=== PATIENT | male | born 1985 | race Caucasian/White ===

== ENCOUNTER 2019-08-13 11:49 | Emergency (ER) | payer MEDICARE, MEDICAID ==
--- NOTE | 2019-08-13 12:09 | ED ---
Abdominal Pain/Male - HPI Summary HPI Summary: 34 year old M presenting to [facility] from his primary care provider's office accompanied by mother, , and son complains of RLQ abdominal pain and right flank pain that started 00:00 today 08/13/19. Reports nausea/vomiting x6 and diarrhea x2 last night. Patient states he was unable to sleep last night. States he tried to use heat for the pain with no relief. The patient rates the pain 10/10 in severity. Symptoms aggravated by nothing. Symptoms alleviated by nothing. Patient denies fever, chills, diaphoresis, erythema of eyes, sore throat, chest pain, shortness of breath, cough, dysuria, hematuria, myalgia, edema, rash, or dizziness. No testicular pain or testicular nodules. reports hx testicular cellulitis a few months ago. Patient is adopted. No smoking or drinking. - History of Current Complaint Chief Complaint: EDFlankPain Stated Complaint: ABD/FLANK PAIN PER PT Time Seen by Provider: 08/13/19 12:02 Hx Obtained From: Patient Onset/Duration: Lasting Hours - 12, Still Present Timing: Constant Severity Currently: Severe Pain Intensity: 10 Pain Scale Used: 0-10 Numeric Location: Discrete At: RLQ, Flank - right Radiates: No Aggravating Factor(s): Nothing Alleviating Factor(s): Nothing Associated Signs And Symptoms: Positive: Negative - fever, chills, diaphoresis, erythema of eyes, sore throat, chest pain, shortness of breath, cough, dysuria, hematuria, myalgia, edema, rash, or dizziness, testicular pain or testicular nodules, Nausea, Vomiting, Diarrhea - Allergies/Home Medications Allergies/Adverse Reactions: Allergies Allergy/AdvReac Type Severity Reaction Status Date / Time cephalexin [From Keflex] Allergy Nausea And Verified 08/13/19 11:51 Vomiting shellfish derived Allergy Hives/Diff. Verified 08/13/19 11:51 Breathing/I tching Home Medications: Home Medications Albuterol inh POWDER (NF) [Proair Respiclick] 1 puff INH DAILY 08/13/19 [ History Confirmed 08/13/19] Cetirizine* [ZyrTEC 10 MG TAB*] 10 mg PO DAILY 08/13/19 [History Confirmed 08/13] Propranolol TAB* [Inderal TAB*] 60 mg PO DAILY 08/13/19 [History Confirmed 08/13] PMH/Surg Hx/FS Hx/Imm Hx Endocrine/Hematology History: Denies: Hx Diabetes, Hx Thyroid Disease Cardiovascular History: Denies: Hx Hypertension Respiratory History: Reports: Hx Asthma Denies: Hx Chronic Obstructive Pulmonary Disease (COPD) GI History: Denies: Hx Ulcer Psychiatric History: Reports: Hx Anxiety - Surgical History Surgery Procedure, Year, and Place: Bilateral laser eye surgery Infectious Disease History: No Infectious Disease History: Denies: Hx Clostridium Difficile, Hx Hepatitis, Hx Human Immunodeficiency Virus (HIV), Hx of Known/Suspected MRSA, Hx Shingles, Hx Tuberculosis, Hx Known/ Suspected VRE, Hx Known/Suspected VRSA, History Other Infectious Disease, Traveled Outside the [place] in Last 30 Days - Family History Known Family History: Positive: Unknown - (Adopted) - Social History Alcohol Use: None Hx Substance Use: No Substance Use Type: Reports: None Hx Tobacco Use: No Smoking Status (MU): Never Smoked Tobacco Have You Smoked in the Last Year: No Review of Systems Negative: Fever, Chills, Skin Diaphoresis Negative: Erythema Negative: Sore Throat Negative: Chest Pain Negative: Shortness Of Breath, Cough Positive: Abdominal Pain - RLQ, Vomiting - x6, Diarrhea - x2, Nausea Genitourinary: Negative - testicular pain, testicular nodules Positive: flank pain - right. Negative: dysuria, hematuria Negative: Myalgia, Edema Negative: Rash Neurological: Negative - Dizziness All Other Systems Reviewed And Are Negative: Yes Physical Exam - Summary Physical Exam Summary: Constitutional: Well-developed, Well-nourished, Alert. (-) Distressed Skin: Warm, Dry HENT: Normocephalic; Atraumatic Eyes: Conjunctiva normal Neck: Musculoskeletal ROM normal neck. (-) JVD, (-) Stridor, (-) Tracheal deviation Cardio: Rhythm regular, rate normal, Heart sounds normal; Intact distal pulses; The pedal pulses are 2+ and symmetric. Radial pulses are 2+ and symmetric. (-) Murmur Pulmonary/Chest wall: Effort normal. (-) Respiratory distress, (-) Wheezes, (-) Rales Abd: Soft, RLQ tenderness upon palpation, right CVA tenderness, (-) Distension, (-) Guarding, (-) Rebound Musculoskeletal: (-) Edema Lymph: (-) Cervical adenopathy Neuro: Alert, Oriented x3 Psych: Mood and affect Normal Triage Information Reviewed: Yes Vital Signs On Initial Exam: Initial Vitals Temp Pulse Resp BP Pulse Ox 98.8 F 103 20 151/101 100 08/13/19 11:51 08/13/19 11:51 08/13/19 11:51 08/13/19 11:51 08/13/19 11:51 Vital Signs Reviewed: Yes Procedures - Sedation Patient Received Moderate/Deep Sedation with Procedure: No Diagnostics - Vital Signs Vital Signs Temp Pulse Resp BP Pulse Ox 08/13/19 11:51 98.8 F 103 20 151/101 100 - Laboratory Result Diagrams: 08/13/19 12:20 08/13/19 12:20 Lab Statement: Any lab studies that have been ordered have been reviewed, and results considered in the medical decision making process. - CT Abd/Pel CT Interpretation Completed By: Radiologist Summary of CT Findings: 1. 0.2 CM CALCULUS OF THE RIGHT UVJ WITH MILD RIGHT HYDROURETER. 2. BILATERAL SPONDYLOLYSIS OF L5. ED physician has reviewed this report. Re-Evaluation - Re-Evaluation First Eval Re-Evaluation Time: 15:12 Change: Improved Comment: patient feels better and updated on plan of care. he agrees to d/c and understands sx that warrant return to ED Abdominal Pain Male Course/Dx - Course Course Of Treatment: 34 year old M from his primary care provider's office complains of RLQ abdominal pain, right flank pain, nausea/vomiting x6, and diarrhea x2 that started 00:00 today 08/13/19. Upon exam, the patient has RLQ tenderness upon palpation and right CVA tenderness. Bloodwork results with no significant abnormalities except for Hct 39, MPV 7.3, absolute neuts 8.7, absolute lymphs 0.8, sodium 134, carbon dioxide 21, creatinine 1.54, lactic acid 2.1, CRP 54.93. Urinalysis results with no significant abnormalities except for protein 1+, trace ketones, RBC 1+. CT Abd/Pel shows, per radiologist : 1. 0.2 CM CALCULUS OF THE RIGHT UVJ WITH MILD RIGHT HYDROURETER. 2. BILATERAL SPONDYLOLYSIS OF L5. In the ED course, the patient was given ketorolac 30 mg IV, morphine 4 mg IV, Zofran 8 mg IV, and normal saline fluids 1 L IV. After medications, patient feels better. Patient will be discharged home with prescription for naproxen 500 mg PO, Flomax 0.4 mg PO, and tramadol 50 mg PO and follow up from urology in 2-3 days. Patient was instructed to return to Emergency Department for new or worsening symptoms especially fever. Patient understands and is agreeable to this plan. - Diagnoses Provider Diagnoses: Ureteral stone Discharge ED - Sign-Out/Discharge Documenting (check all that apply): Patient Departure - Discharge - Discharge Plan Condition: Stable Disposition: HOME Prescriptions: Naproxen TAB* [Naprosyn 250 mg TAB*] 500 mg PO Q8H PRN #30 tab PRN Reason: Pain - Severe Tamsulosin CAP* [Flomax CAP*] 0.4 mg PO DAILY #4 cap traMADol TAB* [Ultram*] 50 mg PO Q6HR PRN #10 tab MDD 4 PRN Reason: Pain - Severe Patient Education Materials: Flank Pain (ED), Ureteral Stones (ED) Referrals: Malachi Puente MD [Medical Doctor] - Additional Instructions: Follow up with urology in 2-3 days. Return to the Emergency Department for changing or worsening symptoms, especially fever. - Attestation Statements Document Initiated by Scribe: Yes Documenting Scribe: Reema Valero Provider For Whom Scribe is Documenting (Include Credential): Luis Mcmullen MD Scribe Attestation: Reema Palmer, scribed for Luis Mcmullen MD on 08/13/19 at 1514. Status of Scribe Document: Ready
[2019-08-13] MEDS ORDERED: NS 0.9% 1000 ML** 1,000 ML IV ONE (12:12)
[2019-08-13] MEDS ORDERED: Ondansetron INJ* 2 MG/ML VIAL IV ONE (12:13)
[2019-08-13] MEDS ORDERED: Morphine 4 MG/ML VIAL (1 ml) 4 MG/ML VIAL IV ONE (12:13)
[2019-08-13] MEDS ORDERED: Ketorolac INJ* 30 MG/ML 1 ML VIAL IV PUSH ONE (12:13)
[2019-08-13 12:30] LABS: ABS Lymphocytes 0.8 10^3/ul (1.0-4.8); ABS Monocytes 0.5 10^3/ul (0-0.8); ABS Neutrophils 8.7 10^3/ul (1.5-7.7); Eosinophil % 0.3 %; Hematocrit 39 % (42-52); Lymphocyte % 7.8 %; Mean Corpuscular HGB Conc 36 g/dL (31-36); Mean Corpuscular Hemoglobin 30 pg (27-31); Mean Corpuscular Volume 83 fL (80-94); Mean Platelet Volume 7.3 fL (7.4-10.4); Platelet Count 307 10^3/uL (150-450); Red Cell Distribution Width 13 % (10-15)
[2019-08-13 12:47] LABS: Albumin 4.4 g/dL (3.2-5.2); Albumin/Globulin Ratio 1.6 (1-3); BUN/Creatinine Ratio 15.6 (8-20); C Reactive Protein 54.93 mg/L (<8.01); Calcium 9.4 mg/dL (8.6-10.3); EGFR African American 63.3 (>60); EGFR Non-African American 52.3 (>60); Globulin 2.8 g/dL (2-4); Potassium 3.6 mmol/L (3.5-5.0); Total Bilirubin 0.6 mg/dL (0.2-1.0); Total Protein 7.2 g/dL (6.4-8.9)
[2019-08-13 13:59] LABS: Urine Appearance Clear; Urine Bacteria Absent (Absent); Urine Bilirubin Negative (Negative); Urine Blood Negative (Negative); Urine Color Yellow; Urine Glucose Negative (Negative); Urine Ketones Trace (Negative); Urine Nitrite Negative (Negative); Urine Protein 1+(30 mg/dL) (Negative); Urine Red Blood Cell 1+(3-5/hpf) (Absent); Urine Urobilinogen Negative (Negative); Urine White Blood Cell Trace(0-5/hpf) (Absent)
[2019-08-13 15:31] VITALS: BP 123/82
== END 2019-08-13 15:20 | disposition home or self-care (01) ==
LOC: ED 11:49
DX: N13.2 Hydronephrosis with renal and ureteral calculous obstruction (principal); M47.896 Other spondylosis, lumbar region; J45.909 Unspecified asthma, uncomplicated; F41.9 Anxiety disorder, unspecified; Z79.899 Other long term (current) drug therapy; Z88.1 Allergy status to other antibiotic agents
CPT/HCPCS: 36415; 74176; 80053; 81003; 81015; 83605; 83690; 85025; 86140; 87086; 96361; 96374; 96375; 99283; J1885; J2270; J2405